=== PATIENT | female | born 1970 | race African-American/Black ===

== ENCOUNTER 2016-12-13 15:07 | Emergency (ER) | payer SELFPAY ==
[~2016-12-13] VITALS: Ht 152.4 cm; Wt 52.2 kg
[2016-12-13] MEDS ORDERED: NKM (15:23)
[2016-12-13] MEDS ORDERED: IBUPROFEN600 MG ORAL (16:51)
[2016-12-13 17:05] VITALS: BP 109/74
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
--- NOTE | 2016-12-14 10:37 | Diagnostic Imaging Report ---
\H\CHEST RADIOGRAPH\N\ Indication: Chest injury, pain Technique: Single AP view of the chest. Findings: Comparison: None. The bones and extra pulmonary soft tissues, cardiomediastinal silhouette, pulmonary vasculature and parenchyma, and pleural surfaces are unremarkable. IMPRESSION: Negative AP chest--no evidence of acute injury. \H\RIGHT RIB RADIOGRAPHS\N\ Indications: Right rib cage injury, pain. Technique: 3 views of the right ribs. Findings: Comparison: None. No fracture, lytic destruction, periosteal reaction, or other acute skeletal changes are identified. The overlying chest wall soft tissues, underlying pleura and pulmonary parenchyma are unremarkable. IMPRESSION: Negative right rib series.
== END 2016-12-13 17:07 | disposition home or self-care (01) ==
LOC: EMR 15:40
DX: S80.11XA Contusion of right lower leg, initial encounter (principal); M25.511 Pain in right shoulder; S20.211A Contusion of right front wall of thorax, initial encounter; W19.XXXA Unspecified fall, initial encounter; Y93.23 Activity, snow (alpine) (downhill) skiing, snowboarding, sledding, tobogganing and snow tubing; Y92.9 Unspecified place or not applicable
CPT/HCPCS: 99283